=== PATIENT | male | born 1945 | race Caucasian/White ===

== ENCOUNTER 2024-07-28 04:09 | Inpatient (IN) | payer OTHER, SELFPAY ==
[2024-07-27 20:32] VITALS: BP 122/80; BMI 32.2
[2024-07-27 21:00] VITALS: BP 122/79
[2024-07-27 21:03] LABS: % Basophils 0.3 % (0-2); % Eosinophils 0.4 % (0-6); % Immature Granulocytes 0.7 % (0-0.5); % Lymphocytes 7.1 % (20.5-51.1); % Neutrophils 84.5 % (42.2-75.2); Absolute Immature Granulocytes 0.1 10^3/uL (0-0.05); Absolute Lymphocytes 0.7 10^3/uL (1.2-3.4); Absolute Monocytes 0.7 10^3/uL (0.1-0.6); Absolute Neutrophils 8.8 10^3/uL (1.4-6.5); Hematocrit 33.6 % (39.0-52.0); Hemoglobin 10.7 g/dL (13.0-18.0); Mean Corp Hgb Conc. 31.8 g/dL (33.0-37.0); Mean Corpuscular Hgb 27.8 pg (27.0-31.0); Mean Corpuscular Volume 87.3 fL (80.0-94.0); Mean Platelet Volume 10.3 fL (7.4-10.4); Nucleated Red Blood Cells % 0 % (-); Platelet Count 237 10^3/uL (130-400); Red Blood Cell Count 3.85 10^6/uL (4.70-6.10); Red Cell Dist. Width 18.5 % (11.5-14.5); White Blood Cell Count 10.4 10^3/uL (4.8-10.8)
[2024-07-27 21:16] LABS: ALT (SGPT) 48 U/L (0-50); AST (SGOT) 54 U/L (17-59); Albumin 4.3 g/dl (3.5-5.0); Alkaline Phosphatase 135 U/L (38-126); Blood Urea Nitrogen 58 mg/dl (9-20); Calcium 9.5 mg/dl (8.4-10.2); Carbon Dioxide 22 mmol/L (22-30); Chloride 98 mmol/L (98-107); Estimated Creatinine Clearance 19 ml/min; Glucose 112 mg/dl (70-99); Potassium 5.4 mmol/L (3.5-5.1); Sodium 133 mmol/L (135-145); Total Bilirubin 1.3 mg/dl (0.2-1.3); Total Protein 7.3 g/dl (6.3-8.2); eGFR 14.86
[2024-07-27 21:24] LABS: NT-proBNP 19300 pg/ml
[2024-07-27 22:00] VITALS: BP 117/104
[2024-07-27 22:56] VITALS: BP 117/64
[2024-07-27 23:00] VITALS: BP 114/75
[2024-07-28] VITALS (9 sets, daily range): BP systolic 105–130; BP diastolic 67–97
--- NOTE | 2024-07-28 00:44 | ED.GENMED ---
History of Present Illness
General
Chief Complaint: Breathing Problem
Source: patient and family
Time Seen by Provider: 07/27/24 21:13
History of Present Illness
History of Present Illness:
78-year-old male who presents after staff at [facility] found him in respiratory distress. EMS arrived to put the patient on a mask. Patient states he felt like he may have been having a panic attack. The patient states that he does have
dialysis tomorrow. Son states that he has been in and out of [facility] for volume overload and issues with his fluid. He has a history of heart failure. They have been considering palliative care. Patient has dialysis tomorrow. He does take
diuretics in between his dialysis days. No fevers. On my evaluation patient feels a bit better on oxygen. It was noted by the nurse that on ambulating to the bathroom, he became extremely short of breath. No chest pain. The patient's son states
that he did advise the senior living to send him to [facility] but they said they could not do that.
Past History
Past History
ED Past Medical History: Arrthythmia (Atrial fibrillation), CHF, COPD, GERD, HTN, Hypercholesterolemia and Other (Sleep apnea)
ED Past Surgical History: Orthopedic
Phy Exam
Physical Exam
Physical Exam:
CONSTITUTIONAL Patient alert and oriented to person, place and time. Well-appearing. Vital signs reviewed.
HEAD atraumatic, normocephalic.
EYES eyelids normal to inspection, Extraocular muscles intact, Conjunctiva normal, Sclera normal.
NECK normal range of motion, Trachea midline, no jugular venous distention.
RESPIRATORY CHEST No respiratory distress noted, Chest expansion equal, Rales at bilateral bases
CARDIOVASCULAR regular rate and rhythm, Heart sounds normal.
ABDOMEN abdomen nontender, Bowel sounds normal. No distention.
BACK normal inspection, no obvious deformities
UPPER EXTREMITY range of motion normal, Motor strength normal, no cyanosis, no edema.
LOWER EXTREMITY range of motion normal, Motor strength normal, no cyanosis, bilateral edema noted.
NEURO Speech normal, No focal motor deficits, Sal[place] coma scale 15, Memory normal, Cranial Nerves intact to screening exam.
SKIN skin warm, dry, and normal in color.
Scores
Heart Failure Risk
Heart Failure Risk Score: Yes
History of Stroke or TIA: No
History of intubation for respiratory distress: No
Heart rate on ED arrival >/= 110: No
SaO2 <90% on arrival on room air: No
HR >/=110 during 3min walk test (or too ill to perform test): Yes
ECG has acute ischemic changes: No
Urea >/=12mmol/L (BUN 33.6mg/dL): Yes
Serum CO2>/=35mmol/L: No
Troponin I or T elevated to ND Level (0.4mg/dL): No
NT-proBNP >/=5,000ng/L (5,000pg/ml): Yes
HF Risk Score: 4
Admission Status: HIGH RISK 26.1% Consider SNF treatment or admission to hospital
Course
Orders/Labs/Results
Orders:
Orders
07/27/24 20:51
Complete Blood Count/With Diff Urgent
Comprehensive Metabolic Panel Urgent
Pro-BNP [NT-proBNP] Urgent
07/27/24 21:37
CR Chest - 2 Views Urgent
Comment:
Reason For Exam: sob
07/27/24 21:43
Electrocardiogram (*1) Urgent
Reason for Study: Shortness of Breath
EKG- Treatment ONCE
07/28/24 01:27
Furosemide [Lasix] 80 mg IV NOW STA
Abnormal Lab Results
07/27/24
20:51
RBC 3.85 L 10^6/uL
(4.70-6.10)
Hgb 10.7 L g/dL
(13.0-18.0)
Hct 33.6 L %
(39.0-52.0)
MCHC 31.8 L g/dL
(33.0-37.0)
RDW 18.5 H %
(11.5-14.5)
Abs Immat Gran (auto) 0.1 H 10^3/uL
(0-0.05)
Absolute Neuts (auto) 8.8 H 10^3/uL
(1.4-6.5)
Absolute Lymphs (auto) 0.7 L 10^3/uL
(1.2-3.4)
Absolute Monos (auto) 0.7 H 10^3/uL
(0.1-0.6)
Immature Gran % 0.7 H %
(0-0.5)
Neutrophils % 84.5 H %
(42.2-75.2)
Lymphocytes % 7.1 L %
(20.5-51.1)
Sodium 133 L mmol/L
(135-145)
Potassium 5.4 H mmol/L
(3.5-5.1)
BUN 58 H mg/dl
(9-20)
Creatinine 3.9 H mg/dL
(0.7-1.3)
Glucose 112 H mg/dl
(70-99)
Alkaline Phosphatase 135 H U/L
(38-126)
07/27/24 20:51
07/27/24 20:51
Vital Signs
Initial and Last Documented VS:
Initial Vital Signs
Pulse
89
07/27/24 20:30
Last Documented Vital Signs
Temp Pulse Resp BP Pulse Ox
97.3 F 93 31 127/72 97
07/27/24 20:32 07/28/24 02:45 07/28/24 02:45 07/28/24 02:19 07/28/24 02:00
MDM/Problems Addressed
Differential Diagnosis Includes:
Pneumonia, CHF, pericardial effusion, pneumothorax, electrolyte disturbance
MDM/Problems Addressed:
Acute CHF, chronic renal failure
*Radiology
Radiology exam reviewed: preliminary read by ED provider (CHF)
*Pulse Oximetry
Patient hypoxic: yes
*EKG
Interpreted by ED Provider?: Yes
Interpretation: abnormal
Rate: normal
Rhythm: av sequential
Ischemia: non-specific ST changes
*Senior Technical Project Manager Interpretation
Rate: normal
Interpretation: abnormal
Rhythm: av sequential
*Critical Care Note
Total Time (30-74mins, 75-104mins- exclusive of procedures): Not Applicable
Data Reviewed
Source: patient and family
Further Testing Considered But Not Given:
Consider CT but chest x-ray reveals volume overload
Patient Management
Discussion with other providers: Hospitalist and [employer] (Medicine at [facility])
Escalation/DeEscalation of care consider admission/obs:
Patient's care was mostly performed recently at [facility]. Case was discussed with [facility] who does accept in transfer but no beds available for at least 24 hours or more. For now admit here. Will try diuresis. Likely could benefit from
dialysis tomorrow. Upon getting out of bed pulse ox dropped to 60%. Stable on oxygen
ED Attending Note
-
Portions of this chart may have been created with voice recognition software.� Occasional wrong word or��sound alike� substitutions may have occurred due to the inherent limitations of voice recognition software.
Discharge Plan
Departure
Patient Disposition: Admit
Date of Disposition: 07/28/24
Time of Disposition: 00:44
Admit to: Telemetry
Presentation/result/management discussed w/ accepting MD/DO: Hospitalist
Discharge Problem:
Volume overload, CHF (congestive heart failure), Chronic progressive renal failure
Prescriptions:
No Action
Tubersol 5 tub. unit /0.1 mL Solution
0.1 ml INTRADERMAL ONCE
acetaminophen 325 mg Tablet
650 mg PO Q6H PRN (Reason: mild pain)
bumetanide [Bumex] 2 mg Tablet
2 mg PO
Rx Instructions:
Take every Tue, Candida, Sat, Sun for fluid retention give on nondialysis days.
famotidine [Pepcid AC] 10 mg Tablet
10 mg PO DAILY
amiodarone 200 mg Tablet
200 mg PO DAILY
midodrine 5 mg Tablet
5 mg PO PRN (Reason: prior to dialysis treatment)
potassium chloride [Klor-Con 10] 10 mEq Tablet Extended Release
10 meq PO BID
levothyroxine 100 mcg Tablet
100 mcg PO DAILY
trazodone 100 mg Tablet
100 mg PO DAILY
carboxymethylcellulose sodium [Lubricant Eye Drops] 0.5 % Drops
1 drp OPHTHALMIC (EYE) Q4 PRN (Reason: dry eyes)
bisacodyl 10 mg Suppository
10 mg LA DAILY PRN (Reason: constipation)
montelukast 10 mg Tablet
10 mg PO DAILY
zolpidem [Ambien] 5 mg Tablet
5 mg PO HS PRN (Reason: sleep)
gabapentin 100 mg Capsule
100 mg PO TID
sertraline 50 mg Tablet
50 mg PO DAILY
duloxetine [Cymbalta] 30 mg Capsule,Delayed Release(Dr/Ec)
30 mg PO BID
Eliquis 2.5 mg Tablet
2.5 mg PO BID
fluticasone furoate-vilanterol [Breo Ellipta] 200-25 mcg/dose Blister With Device
1 inh INHALATION DAILY
Referrals:
Bonnie Velasquez MD [Family Provider] -
Interventions
Interventions:
*Risk Screen - Suicide Last Done: 07/27/24 20:32
*General Assessment Last Done: 07/27/24 20:32
*Neglect/Abuse Screening Last Done: 07/27/24 20:32
*ED- Fall Risk Assessment Last Done: 07/27/24 20:32
*ED COVID-19 Vaccine History Last Done: 07/27/24 20:32
ED- Cardiac Assessment Last Done: 07/27/24 22:21
ED- Pulmonary Assessment Last Done: 07/27/24 21:42
Discharge Date and Time
Print Language: SINHALA
[2024-07-28] MEDS: LASIX 80 MG IV (02:19)
--- NOTE | 2024-07-28 03:48 | HPS.HSE ---
Family Physician
-
Family Physician: Bonnie Velasquez
Chief Complaint
-
SOB
History of Present Illness
Patient is an 78y M with PMH significant for CHF, newly started hemodialysis and ASCVD who presents to ED complaining of SOB. Patient states that he has been hospitalized at [facility] multiple times in the past few months. Most
recently he was newly started on hemodialysis and currently receives this M-W-. He states that he has had 5 sessions total thus far.
This evening, patient was noted to be in respiratory distress at the [place] and EMS was called. Patient was brought to the ED for further evaluation and treatment.
Patient states that he has had similar episodes in the past. He feels that they are due to anxiety.
He also reports a chronic cough that is minimally productive of thick white mucus. He attributes this to 'sinuses'.
He does have dyspnea / increased work of breathing noted with movement even in the bed.
Medical History
Past Medical History
Past Medical History: Reports Other
Additional Past Medical History:
ASCVD
Chronic HFrEF
Atrial Fibrillation
CKD / ESRD
COPD
GERD
Anxiety / Depression
Past Surgical History: Reports Other
Additional Past Surgical History:
CABG x 2
AICD Placement
R IJ HD Catheter Placement
Multiple Bilateral Knee Arthroscopies
Bilateral TKA
Cholecystectomy
Lumbar Laminectomy / Fusion
Social History
Tobacco: Former Smoker
Alcohol: None
Living: Skilled Nursing
Family History
Family History: Not pertinent
Allergies / Home Medications
Allergies reflects when Allergies were last updated in [facility].
Home Medications with original date entered in [facility]
Allergy/Medication List:
Allergies
Allergy/AdvReac Type Severity Reaction Status Date / Time
diazepam [From Valium] Allergy Unknown Verified 07/27/24 20:28
haloperidol [From Haldol] Allergy Unknown Verified 07/27/24 20:28
latex Allergy Unknown Verified 07/27/24 20:28
lisinopril Allergy Unknown Verified 07/27/24 20:28
oxycodone Allergy Unknown Verified 07/27/24 20:28
Home Medications
acetaminophen 325 mg tablet 650 mg PO Q6H PRN mild pain 07/28/24
amiodarone 200 mg tablet 200 mg PO DAILY 07/28/24
apixaban 2.5 mg tablet (Eliquis) 2.5 mg PO BID 07/28/24
bisacodyl 10 mg rectal suppository 10 mg MS DAILY PRN constipation 07/28/24
bumetanide 2 mg tablet 2 mg PO 07/28/24
carboxymethylcellulose sodium 0.5 % eye drops (Lubricant Eye Drops) 1 drp ophthalmic (eye) Q4 PRN dry eyes 07/28/24
duloxetine 30 mg capsule,delayed release (Cymbalta) 30 mg PO BID 07/28/24
famotidine 10 mg tablet (Pepcid AC) 10 mg PO DAILY 07/28/24
fluticasone furoate 200 mcg-vilanterol 25 mcg/dose inhalation powder (Breo Ellipta) 1 inh inhalation DAILY 07/28/24
gabapentin 100 mg capsule 100 mg PO TID 07/28/24
levothyroxine 100 mcg tablet 100 mcg PO DAILY 07/28/24
midodrine 5 mg tablet 5 mg PO PRN prior to dialysis treatment 07/28/24
montelukast 10 mg tablet 10 mg PO DAILY 07/28/24
potassium chloride 10 mEq tablet,extended release (Klor-Con) 10 meq PO BID 07/28/24
sertraline 50 mg tablet 50 mg PO DAILY 07/28/24
trazodone 100 mg tablet 100 mg PO DAILY 07/28/24
tuberculin PPD 5 tub. unit/0.1 mL intradermal injection solution (Tubersol) 0.1 ml intradermal ONCE 07/28/24
zolpidem 5 mg tablet (Ambien) 5 mg PO HS PRN sleep 07/28/24
Review of Systems
-
History Source: Patient
A 12 point ROS was completed and negative except as noted: Yes
Constitutional: Denies Fever or Chills
Respiratory: Reports Cough and Trouble Breathing
Cardiac: Denies Chest Pain or Palpitations
Abdomen/GI: Denies Abdominal Pain, Nausea, Vomiting or Diarrhea
: Denies Dysuria or Flank Pain
Musculoskeletal: Reports Other (Back Pain); Denies Joint Pain
Neurological: Denies Dizzy or Headache
Psych: Denies Depression or Anxiety
Physical Exam
Vital Signs
Vital Signs
Temp Pulse Resp BP Pulse Ox
97.3 F 83 24 112/67 98
07/27/24 20:32 07/28/24 03:15 07/28/24 03:15 07/28/24 03:11 07/28/24 03:23
Physical Exam
General: Other (78y M in no acute distress - but evident increased work of breathing with activity / movement.)
HEENT: Moist mucous membranes, PERRLA and Other (Pos JVD. R IJ HD cath in place and well-appearing.)
Respiratory: Clear; No Wheezes, Rales or Rhonchi
Cardiac: S1/S2, Irregular Rhythm and Murmur (III/ SURAJ)
GI: Soft, Non Tender, Non Distended and Normal Bowel Sounds
Musculoskeletal: No Clubbing, No Cyanosis and Other (1-2+ pitting edema to the knees bilaterally.)
Neuro: AO x 3
Laboratory Results
-
07/27/24 20:51
07/27/24 20:51
Laboratory Results
Total Bilirubin 1.3 mg/dl (0.2-1.3) 07/27/24 20:51
AST 54 U/L (17-59) 07/27/24 20:51
ALT 48 U/L (0-50) 07/27/24 20:51
Alkaline Phosphatase 135 U/L (38-126) H 07/27/24 20:51
Impression/Plan
-
A/P: Patient is an 78y M with PMH significant for ASCVD, CHF and newly started hemodialysis who presents to ED complaining of SOB.
Acute on Chronic HFrEF
- Admit for further evaluation and treatment.
- CXR with mild pulmonary edema - though lungs clear on exam after Lasix dose in the ED.
- Oxygenating well on supplemental O2.
- Pos peripheral edema.
- Lasix 80mg IV given in the ED.
- Further volume management on HD / UF.
- Plan is for transfer to [facility] when bed available.
- Accepted at that facility pending bed availability per ED notes - but no listed physician, specifics, etc.
- Will send for records in the event that transfer is not imminent.
- Follow I/Os, daily weights. Monitor for improvement in dyspnea.
CKD on HD
- Newly started CKD / ESRD - (patient states only 5 sessions thus far).
- Nephrology consult for HD needs during stay. Next HD due Wednesday.
- Hold supplemental potassium.
- Fluid restriction / low salt diet.
Paroxysmal Atrial Fibrillation
- Stable. Continue current meds including amiodarone, Eliquis, etc.
- Monitor on telemetry overnight.
ASCVD
- Stable. No chest pain.
- Continue current CV med regimen.
Normocytic Anemia
- Unknown acuity. ? anemia of CKD.
- Obtain / review recent records and pursue anemia evaluation if this has not already been done.
COPD
- Patient reports chronic cough which is unchanged.
- Continue current inhaled medication regimen,.
- Follow for any new / worsening symptoms.
Hypothyroidism
- Stable. Continue current T4 supplementation.
Anxiety / Depression
- Patient attributes dyspnea to 'panic attacks'.
- Low-dose Ativan PRN.
- Continue current sertraline / trazodone.
- Adjust regimen as needed for symptom control.
DVT Prophylaxis: On Eliquis
Code Status: DNR listed on NH record; however, patient clear that he would wish for resuscitation efforts in the event of cardiac arrest.
Has AICD in place as well. Continue to address / clarify goals of care during stay.
[2024-07-28] MEDS: ATIVAN 0.5 MG PO (05:12)
[2024-07-28 05:24] LABS: Hematocrit 31.6 % (39.0-52.0); Hemoglobin 10.1 g/dL (13.0-18.0); Mean Corpuscular Hgb 27.9 pg (27.0-31.0); Mean Corpuscular Volume 87.3 fL (80.0-94.0); Mean Platelet Volume 10.4 fL (7.4-10.4); Platelet Count 253 10^3/uL (130-400); Red Blood Cell Count 3.62 10^6/uL (4.70-6.10); Red Cell Dist. Width 18.4 % (11.5-14.5); White Blood Cell Count 10.5 10^3/uL (4.8-10.8)
[2024-07-28 05:47] LABS: Blood Urea Nitrogen 63 mg/dl (9-20); Calcium 9.5 mg/dl (8.4-10.2); Carbon Dioxide 22 mmol/L (22-30); Chloride 99 mmol/L (98-107); Estimated Creatinine Clearance 18 ml/min; Glucose 107 mg/dl (70-99); Magnesium 2.2 mg/dl (1.6-2.3); Potassium 5.4 mmol/L (3.5-5.1); Sodium 134 mmol/L (135-145); eGFR 14.42
[2024-07-28 06:02] LABS: Troponin I 0.142 ng/ml
[2024-07-28] MEDS: SYMBICORT 160/4.5 MCG INHALER 2 PUFF INH (07:54)
[2024-07-28] MEDS: NEURONTIN 100 MG PO (08:05)
[2024-07-28] MEDS: PACERONE 200 MG PO (08:05)
[2024-07-28] MEDS: PEPCID 10 MG PO (08:06)
[2024-07-28] MEDS: ELIQUIS 2.5 MG PO (08:07)
[2024-07-28] MEDS: SINGULAIR 10 MG PO (08:08)
[2024-07-28] MEDS: ZOLOFT 50 MG PO (08:08)
[2024-07-28] MEDS: DESYREL 100 MG PO (08:08)
[2024-07-28] MEDS: VENTOLIN NEBULES 2.5 MG INH (08:45)
--- NOTE | 2024-07-28 08:53 | PTCARENOTE ---
pt being transferred to [facility] room 23. report given to receiving rn. eta for pickup is 1000.
--- NOTE | 2024-07-28 09:01 | W.PN.UPDATE ---
Update Note
Progress Note Update
Patient seen and examined.
No changes in clinical status since admission.
Paperwork signed for transfer to [facility].
--- NOTE | 2024-07-28 10:05 | W.CON.NEPH ---
Consultation
-
Date/Time Consultation Requested: July 28, 2024 at 7 AM
Date/Time Consultation Performed: July 28, 2024 at 10 AM
Requesting Provider: Dr. Brunner
Performing Provider: Dr. Hook
Reason for Consultation: End-stage renal disease
Medical History
-
Chief Complaint: ESRD
History of Present Illness:
78y M with PMH significant for CHF, newly started hemodialysis and ASCVD who presents to ED complaining of SOB. Patient states that he has been hospitalized at [facility] multiple times in the past few months. Most recently he was newly
started on hemodialysis and currently receives this --. He states that he has had 5 sessions total thus far.
This evening, patient was noted to be in respiratory distress at the [facility] and EMS was called
Renal consult for end-stage renal disease
Patient appears encephalopathic unable to give me a history although uncertain to his baseline.
He is seen in the ER and is otherwise comfortable on nasal cannula
Past Medical History
ESRD, CHF, hypertension, anemia of chronic disease, atrial fibrillation, COPD
Social History
Tobacco: Non-Smoker
Family History
Family History: Not Pertinent
Allergies / Home Medications
Allergy/AdvReac Type Severity Reaction Status Date / Time
diazepam [From Valium] Allergy Unknown Verified 07/27/24 20:28
haloperidol [From Haldol] Allergy Unknown Verified 07/27/24 20:28
latex Allergy Unknown Verified 07/27/24 20:28
lisinopril Allergy Unknown Verified 07/27/24 20:28
oxycodone Allergy Unknown Verified 07/27/24 20:28
�Medication �Instructions �Recorded �Confirmed �Type
acetaminophen 325 mg tablet 650 mg PO Q6H PRN mild pain 07/28/24 07/28/24 History
amiodarone 200 mg tablet 200 mg PO DAILY 07/28/24 07/28/24 History
apixaban 2.5 mg tablet (Eliquis) 2.5 mg PO BID 07/28/24 07/28/24 History
bisacodyl 10 mg rectal suppository 10 mg [place] DAILY PRN constipation 07/28/24 07/28/24 History
bumetanide 2 mg tablet 2 mg PO 07/28/24 History
carboxymethylcellulose sodium 0.5 1 drp ophthalmic (eye) Q4 PRN dry 07/28/24 07/28/24 History
% eye drops (Lubricant Eye Drops) eyes
duloxetine 30 mg capsule,delayed 30 mg PO BID 07/28/24 07/28/24 History
release (Cymbalta)
famotidine 10 mg tablet (Pepcid AC) 10 mg PO DAILY 07/28/24 07/28/24 History
fluticasone furoate 200 1 inh inhalation DAILY 07/28/24 07/28/24 History
mcg-vilanterol 25 mcg/dose
inhalation powder (Breo Ellipta)
gabapentin 100 mg capsule 100 mg PO TID 07/28/24 07/28/24 History
levothyroxine 100 mcg tablet 100 mcg PO DAILY 07/28/24 07/28/24 History
midodrine 5 mg tablet 5 mg PO PRN prior to dialysis 07/28/24 History
treatment
montelukast 10 mg tablet 10 mg PO DAILY 07/28/24 07/28/24 History
potassium chloride 10 mEq 10 meq PO BID 07/28/24 07/28/24 History
tablet,extended release (Klor-Con)
sertraline 50 mg tablet 50 mg PO DAILY 07/28/24 07/28/24 History
trazodone 100 mg tablet 100 mg PO DAILY 07/28/24 07/28/24 History
tuberculin PPD 5 tub. unit/0.1 mL 0.1 ml intradermal ONCE 07/28/24 07/28/24 History
intradermal injection solution
(Tubersol)
zolpidem 5 mg tablet (Ambien) 5 mg PO HS PRN sleep 07/28/24 07/28/24 History
Review of Systems
-
No chest pain or shortness of breath
Physical Exam
Vital Signs
Vital Signs
Temp Pulse Resp BP Pulse Ox
97.3 F 83 23 108/97 98
07/27/24 20:32 07/28/24 09:00 07/28/24 09:00 07/28/24 08:00 07/28/24 08:45
Lab Results
WBC 10.5 10^3/uL (4.8-10.8) 07/28/24 05:05
RBC 3.62 10^6/uL (4.70-6.10) L 07/28/24 05:05
Hgb 10.1 g/dL (13.0-18.0) L 07/28/24 05:05
Hct 31.6 % (39.0-52.0) L 07/28/24 05:05
Plt Count 253 10^3/uL (130-400) 07/28/24 05:05
Sodium 134 mmol/L (135-145) L 07/28/24 05:05
Potassium 5.4 mmol/L (3.5-5.1) H 07/28/24 05:05
Chloride 99 mmol/L (98-107) 07/28/24 05:05
Carbon Dioxide 22 mmol/L (22-30) 07/28/24 05:05
BUN 63 mg/dl (9-20) H 07/28/24 05:05
Creatinine 4.0 mg/dL (0.7-1.3) H 07/28/24 05:05
eGFR 14.42 07/28/24 05:05
Glucose 107 mg/dl (70-99) H 07/28/24 05:05
Calcium 9.5 mg/dl (8.4-10.2) 07/28/24 05:05
Phosphorus 5.0 mg/dl (2.5-4.5) H 07/28/24 05:05
Awj-E-Ymkuuirdaqe Pept 34454 pg/ml 07/27/24 20:51
Albumin 4.3 g/dl (3.5-5.0) 07/27/24 20:51
Physical Exam
General no acute distress
HEENT no cephalic atraumatic extraocular muscle intact no scleral icterus no JVD neck supple
lungs crackles bilateral
heart regular S1-S2 positive
abdomen soft nontender positive bowel sounds
extremities edema
Neurologically nonfocal alert x 1
Skin no lesions no abrasions no petechiae
Psych normal affect no bizarre behavior
Data Reviewed
-
Radiology: Image Personally Visualized and interpreted
Labs: Labs Reviewed by me
Assessment/Plan
-
78y M with PMH significant for CHF, newly started hemodialysis and ASCVD who presents to ED complaining of SOB. Patient states that he has been hospitalized at [facility] multiple times in the past few months. Most recently he was newly
started on hemodialysis and currently receives this M--. He states that he has had 5 sessions total thus far.
This evening, patient was noted to be in respiratory distress at the [facility] and EMS was called
Impression
ESRD
CHF
Atrial fibrillation
COPD
Hyperkalemia
Plan
Dialysis today ultrafiltration as tolerated
Consider echo
Patient may be transferred to [facility]
Patient is a new dialysis patient so he should respond to diuretics.
I will give 120 mg IV Lasix if not transferred.
--- NOTE | 2024-07-28 10:13 | PTCARENOTE ---
report given to acute care ems.
== END 2024-07-28 11:00 | disposition short-term general hospital (02) | DRG 291 ==
LOC: ED 04:09
PROVIDERS: ADMITTING PHYSICIAN Hospitalist; ATTENDING PHYSICIAN Internal Medicine; EMERGENCY PHYSICIAN Emergency Medicine; FAMILY PHYSICIAN Internal Medicine; OTHER PHYSICIAN Internal Medicine Nephrology
DX: I13.2 Hypertensive heart and chronic kidney disease with heart failure and with stage 5 chronic kidney disease, or end stage renal disease (principal); I50.23 Acute on chronic systolic (congestive) heart failure; N18.6 End stage renal disease; G93.40 Encephalopathy, unspecified; F41.0 Panic disorder [episodic paroxysmal anxiety]; R06.03 Acute respiratory distress; E78.00 Pure hypercholesterolemia, unspecified; G47.30 Sleep apnea, unspecified; J44.9 Chronic obstructive pulmonary disease, unspecified; K21.9 Gastro-esophageal reflux disease without esophagitis; I48.0 Paroxysmal atrial fibrillation; I25.10 Atherosclerotic heart disease of native coronary artery without angina pectoris; F32.A Depression, unspecified; D63.1 Anemia in chronic kidney disease; E03.9 Hypothyroidism, unspecified; E87.5 Hyperkalemia; Z96.653 Presence of artificial knee joint, bilateral; Z99.2 Dependence on renal dialysis; Z95.1 Presence of aortocoronary bypass graft; Z95.810 Presence of automatic (implantable) cardiac defibrillator; Z90.49 Acquired absence of other specified parts of digestive tract; Z98.1 Arthrodesis status; Z79.890 Hormone replacement therapy; Z79.01 Long term (current) use of anticoagulants; Z87.891 Personal history of nicotine dependence; Z88.5 Allergy status to narcotic agent; Z91.040 Latex allergy status; Z88.8 Allergy status to other drugs, medicaments and biological substances
CPT/HCPCS: 71046; 80048; 80053; 83735; 83880; 84100; 84484; 85025; 85027; 87070; 93005; 94640